=== PATIENT | female | born 2000 | race Caucasian/White ===

== ENCOUNTER 2023-11-26 05:55 | Emergency (ER) | payer BC, SELFPAY ==
[2023-11-26 06:15] VITALS: BP 133/93; PULSE 75; RESP 16; TEMP 36.4; O2SAT 97; BMI 23.4
--- NOTE | 2023-11-26 06:36 | ED.GENADULT ---
HPI - General Adult General Chief complaint: Abdominal Pain Stated complaint: abdominal pain Time Seen by Provider: 11/26/23 06:18 Source: patient Mode of arrival: ambulatory Limitations: no limitations History of Present Illness HPI narrative: [age] for old female presents the emergency department with a a 16 hour history of epigastric area discomfort. Does not radiate, achy and constant, slept poorly overnight due to this. Does not drink excessive amounts of alcohol, does not smoke. Does admit to drinking kombucha or seltzers daily. No fever, no trauma or injury. Last bowel movement was about 2 days ago and normal. No bloody stools, no constipation, no diarrhea. No right upper quadrant pain or vomiting. No fevers, chills or signs of systemic illness. No history of gallbladder disease. No prior history of abdominal surgeries. No prior history of similar symptoms. Did not try any Tylenol, ibuprofen, stomach acid medicines, etc. prior to coming to ED. Takes an oral contraceptive, no missed pills, is currently about day 7 of her pack. No gynecological changes. Past medical history benign, denies major long-term health problems. Only home medication is oral contraceptive, no prior surgeries. Nonsmoker. ROS is notable for the GI symptoms as above only, otherwise denies times 12 systems. Related Data Home Medications ?Medication ?Instructions ?Recorded ?Confirmed control 11/26/23 Previous Rx's ?Medication ?Instructions ?Recorded famotidine 40 mg tablet 40 mg PO DAILY #14 tabs 11/26/23 ondansetron 4 mg disintegrating 4 mg PO Q8H PRN nausea and 11/26/23 tablet vomiting #7 tabs Allergies Allergy/AdvReac Type Severity Reaction Status Date / Time No Known Drug Allergies Allergy Verified 11/26/23 06:18 [facility] Social History Smoking Status: Never smoker Do you use any of these nicotine containing products: None How often do you have a drink containing alcohol: never AUDIT-C Alcohol total score: 0 Non-prescribed substance use: denies use Exam Const: Vital Signs, click to edit/add: Vital Signs - 24 hr 11/26/23 06:15 Temperature 97.6 F Pulse Rate [Pulse Oximeter] 75 Respiratory Rate 16 Blood Pressure [Ri ght Upper Arm] 133/93 H Pulse Oximetry 97 Oxygen Delivery Me thod Room Air Documenting provider has reviewed patient's vital signs: yes Common normals: no apparent distress General appearance: cooperative and well kempt HENMT: Common normals: normocephalic and oropharynx normal Head and scalp: normocephalic Face and sinus: normal facial exam Mouth: oral and palatal mucosa normal Throat: posterior oropharynx normal Eye: Common normals: conjunctivae normal General eye: normal appearance of both eyes Conjunctiva: conjunctiva(e) normal Neck & C-Spine: Common normals: no lymphadenopathy General: normal visual inspection Resp: Common normals: normal respiratory effort, no use of accessory muscles and clear to auscultation bilaterally Effort & inspection: able to speak in complete sentences Auscultation: clear to auscultation bilaterally Cardio: Common normals: regular rate, regular rhythm, S1 normal heart sound, S2 normal heart sound and no murmurs Rate: regular rate Rhythm: regular rhythm Heart sounds: S1 normal and S2 normal GI: Common normals: Normal to inspection, nondistended, normoactive bowel sounds present, soft to palpation, no hepatosplenomegaly and no masses Palpation: soft and no hepatosplenomegaly Other: Mildly tender to epigastrium only. No rebound tenderness, guarding or pain in other areas. No hepatosplenomegaly, no mass : Common normals: no CVA tenderness Bladder/kidney exam: no CVA tenderness Back & Pelvis: Common normals: no CVA tenderness Extremity: Common normals: normal to inspection, normal capillary refill and no pedal edema Neuro: Speech: speech normal Motor exam: strength 5/5 throughout and no movement abnormalities noted Psych: Appearance: well kempt Activity/motor behavior: appropriate eye contact Mood and affect: euthymic mood Attention/concentration: attention grossly intact Judgement: judgment good Skin: Common normals: no rashes or lesions noted General skin exam: no rashes or lesions noted Course Course ED Course: Epigastric pain with normal vital signs and overall reassuring exam. Suspect gastritis. Question viral etiology, cannot exclude other etiologies. Lower suspicion for bleeding ulcer, obstruction, pancreatitis, gallbladder disease, appendicitis, unusual presentation of kidney stone. Recommended some basic blood work to look at LFTs, pancreatic enzymes, basic metabolic panel and inflammatory markers. Will give famotidine and GI cocktail. Discussed risks and benefits of CT scan. At this time exam is very reassuring, no fever. If blood work is reassuring, would not recommend CT due to risk of radiation. Await findings in blood work and clinical response to trial of medication. Reevaluation(s) Time of Reevaluation #1: 07:51 Reevaluation #1: Patient feeling a little better after the famotidine and GI cocktail. No vomiting. Lab findings reviewed, very reassuring. Suspect gastritis. I do not recommend CT or further workup based on how reassuring the labs are. Discussed 10 days of famotidine, avoiding carbonated beverages, most likely viral etiology. I would like for her to also have some Zofran and loperamide on hand in case her symptoms do evolve like most individuals we are seeing with the current circulating GI virus. Slowly reintroduce foods as tolerated and drink lots of fluids. Alarm symptoms are reviewed that would warrant ED presentation. She verbalizes understanding and agreement. Vital Signs Vital signs: Initial Vital Signs Temperature 97.6 F 11/26/23 06:15 Temperature Source Temporal Artery Scan 11/26/23 06:15 Pulse Rate 75 11/26/23 06:15 Respiratory Rate 16 11/26/23 06:15 Blood Pressure 133/93 H 11/26/23 06:15 Blood Pressure Mean 106 H 11/26/23 06:15 Blood Pressure Position Sitting 11/26/23 06:15 Pulse Oximetry 97 11/26/23 06:15 Oxygen Delivery Method Room Air 11/26/23 06:15 Vital Signs Temperature 97.6 F 11/26/23 06:15 Pulse Rate 75 11/26/23 06:15 Respiratory Rate 16 11/26/23 06:15 Blood Pressure 133/93 H 11/26/23 06:15 Pulse Oximetry 97 11/26/23 06:15 Oxygen Delivery Method Room Air 11/26/23 06:15 Temperature 97.6 F 11/26/23 06:15 Pulse Rate 75 11/26/23 06:15 Respiratory Rate 16 11/26/23 06:15 Blood Pressure 133/93 H 11/26/23 06:15 Pulse Oximetry 97 11/26/23 06:15 Oxygen Delivery Method Room Air 11/26/23 06:15 Medications Administered Medications: Discontinued Medications Generic Name Dose Route Start Last Admin Trade Name Freq PRN Reason Stop Dose Admin Famotidine 20 mg 11/26/23 06:33 11/26/23 06:52 Famotidine 20 Mg Tablet PO 11/26/23 06:34 20 mg ONCE ONE Administration Lidocaine/Aluminum/Magnesium/Simeth 30 ml 11/26/23 06:33 11/26/23 06:52 Gi Cocktail (Visc Lido/Antacid) 30 Ml PO 11/26/23 06:34 30 ml ONCE ONE Administration Medical Decision Making Lab Data Lab results reviewed: Yes I reviewed the patient's lab results Lab results narrative: Reassuring. Labs: Lab Results 11/26/23 11/26/23 Range/Units 06:59 07:30 WBC 6.60 (4.50-11.00) K/uL RBC 4.48 (4.00-5.20) m/uL Hgb 12.9 (12.0-16.0) gm/dL Hct 39.1 (33.0-51.0) % MCV 87 (80-100) fL MCH 29 (26-34) pg MCHC 33 (32-36) gm/dL RDW Coeff of Cielo 12.5 (11.5-15.5) % Plt Count 180 (140-440) K/uL Neut % (Auto) 79.5 H (42.0-72.0) % Lymph % (Auto) 9.2 L (20-44) % Anderson % (Auto) 9.8 (0.0-11.0) % Eos % (Auto) 1.1 (0.0-7.0) % Baso % (Auto) 0.2 (0.0-3.0) % Neut # (Auto) 5.20 (1.7-7.0) K/uL Lymph # (Auto) 0.60 L (0.90-2.90) K/uL Anderson # (Auto) 0.60 (0.00-0.90) K/UL Eos # (Auto) 0.07 (0.00-0.50) K/uL Baso # (Auto) 0.01 (0.00-0.30) K/uL Abs Immat Gran (auto) 0.01 (0.00-0.30) K/uL Imm/Tot Granulo (auto) 0.2 % Sodium 139 (135-149) mmol/L Potassium 4.0 (3.6-5.1) mmol/L Chloride 107 (96-114) mmol/L Carbon Dioxide 23 (20-32) mmol/L Anion Gap 9 (7-15) mEq/L BUN 8 (5-24) mg/dL Creatinine 0.6 (0.5-1.5) mg/dL Estimated Creat Clear 135.35 Estimated GFR 128 ml/min Glucose 105 (60-115) mg/dL Calcium 8.9 (8.4-10.6) mg/dL Total Bilirubin 0.4 (0.1-1.5) mg/dL AST 24 (12-35) U/L ALT 17 (4-35) U/L Alkaline Phosphatase 42 (40-150) U/L C-Reactive Protein 2.0 H (0.5-1.0) mg/dL Total Protein 7.7 (6.0-8.3) g/dL Albumin 4.7 (3.3-5.0) g/dL Lipase 72 (23-300) U/L Urine Color Yellow (Yellow) Urine Appearance Clear (Clear) Urine pH 6.5 (5.0-8.5) Ur Specific Stacy 1.015 (1.000-1.030) Urine Protein Negative (Negative) Urine Glucose (UA) Negative (Negative) Urine Ketones Negative (Negative) Urine Blood Negative (Negative) Urine Nitrite Negative (Negative) Urine Bilirubin Negative (Negative) Urine Urobilinogen 0.2 (0.2-1.0) Ur Leukocyte Esterase Negative (Negative) Urine HCG, Qual Negative (Negative) Discharge Plan Discharge Clinical Impression: Gastritis Instructions: Gastritis (DC) Additional Instructions: As we discussed, your blood work is reassuring. There are no signs of gallstones, gallbladder disease, infection, significant inflammation, pancreatic abnormalities or anemia. This is all great news. I suspect that your symptoms are caused by gastritis which is an inflammation of the stomach lining typically caused by a virus in people your age. Most of the time, the virus then progresses to nausea and vomiting and then often diarrhea or loose stools over the next few days. I would like for you to avoid carbonated beverages and alcohol for the next week. I would like for you to take famotidine which is a stomach acid medicine once daily for the next 10 days to allow things to heal. I would also like to give you a prescription for Zofran which is an anti nausea medication. You are not having vomiting but most people that have the stomach discomfort do progressed to vomiting within the next 12-24 hours and I would like to help prevent and or reduce your risk of dehydration or worsening if that occurs. You do not need to take the Zofran unless you start to feel very nauseated. If you developed loose stools or diarrhea, it is okay to use [id number] Imodium also known as loperamide. I would recommend that you pick some up and have this on hand. If you start running high fevers, have severe weakness, lots of bloody stools or persistent vomiting that is not responding to the Zofran, you should come back to the emergency department. Otherwise if your symptoms persist for more than 10 days, I would recommend that you make a follow-up appointment with the primary care provider to run additional tests. Activity Level: Activity as Tolerated Prescriptions: New famotidine 40 mg tablet 40 mg PO DAILY Qty: 14 1RF Rx Instructions: Take daily for the next 10 days, then as needed for stomach discomfort ondansetron 4 mg tablet,disintegrating 4 mg PO Q8H PRN (Reason: nausea and vomiting) Qty: 7 0RF No Action control Follow Up/Referrals: Generic,Amb Provider [Primary Care Provider] -
--- OUTSIDE RECORDS SUMMARY | 2023-11-26 06:51 | XMS_ITS | Clinical Summary ---
Author Organization [employer] Address [place], [place] [address] Care Team Providers Care Dental Technician Instructor Name Role Phone Pcp, No Primary Care Provider Unavailabl e Allergies No known active allergies Medications Medication Sig Dispensed Refills Start Date End Date Status norgestrel-ethinyl estradiol, 0.3-30 mg-mcg, (LO-OVRAL) 0.3-30 mg-mcg tabletIndications:Gener al counseling for prescription of oral contraceptives Take 1 Tablet by mouth once daily. 84 Tablet 3 03/20/2023 Active Active Problems Problem Noted Date Diagnosed Date Pap smear for cervical cancer screening 04/12/20 22 Overview: 04/2022 NIL. Plan: Pap/HPV due 04/2025. Immunizations Name Administration Dates Next Due COVID-19 Vaccine Spikevax (M oderna 50mcg/0.5mL) 12YO+ [id number] Formula PF 03/20/2023 COVID-19 vaccine (Pfizer-Bio NTech 30mcg/0.3mL) 12YO+ BIVALENT PF, MDV 04/24/2022 COVID-19 vaccine (Pfizer-Bio NTech 30mcg/0.3mL) PF, MDV 05/20/2021,10/04/2020,09/13/2020 Tdap 12/02/2012 Family History Medical History Relation Name Comments Alcoholism Father Alzheimer's disease Maternal Grandfather Diabetes Maternal Grandmother Cancer-breast Mother had mastectomy ; no chemo or radiation Cancer Paternal Grandfather stomach Skin cancer Paternal Grandmother Relation Name Status Comments Father Maternal Grandfather Maternal Grandmother Mother Paternal Grandfather Paternal Grandmother Social History Tobacco Use Types Packs/Day Years Used Date Smoking Tobacco: Never Smokeless Tobacco: Never Tobacco Cessation:Counseling Given: Yes Alcohol Use Standard Drinks/Week Comments Yes 0 (1 standard drink = 0.6 oz pur e alcohol) 1-2 drinks per week PHQ-2 Answer Date Recorded PHQ-2 TOTAL SCORE 0 03/20/2023 Social Connections Answer Date Recorded Frequency of Communication with Friends and Fami ly Not on file 05/03/2023 Financial Resource Strain Answer Date R ecorded Difficulty of Paying Living Expenses 3 05/02/2022 Difficulty of Paying Living Expenses Not on file 05/02/2022 Food Insecurity Answer Date Recorded Worried About Running Out of Food in the Last Ye ar 1 05/02/2022 Transportation Needs Answer Date Record ed Lack of Transportation (Medical) 1 05/02/2022 Housing Stability Answer Date Recorded Unable to Pay for Housing in the Last Year 1 05/02/2022 Sex and Gender Information Value Date Recorded Sex Assigned at Female 05/01/2022 11:20 AM [employer] Gender Identity Female 05/01/2022 11:20 AM [employer] Sexual Orientation Straight 05/01/2022 11 :20 AM [employer] Obstetrics History Last Filed Vital Signs Vital Sign Reading Time Taken Comments Blood Pressure 117/77 03/20/2023 8:30 AM [employer] Pulse 70 03/20/2023 8:30 AM [employer] Temperature - - Respiratory Rate - - Oxygen Saturation 98% 03/20/2023 8:30 AM [employer] Inhaled Oxygen Concentration - - Weight 66.9 kg (147 lb 6.4 oz) 03/20/2023 8:30 A M [employer] Height 169.5 cm (5' 6.73) 03/20/2023 8:30 AM CS T Body Mass Index 23.27 03/20/2023 8:30 AM [employer]OP[employer] Plan of Treatment Health Maintenance Due Date Last Done Comments HIV for age 15-65 08/14/2014 HPV series for age 9-26 (1 - 3-dose series) 08/14/2014 Hepatitis C screening for age 18-79 08/14/2017 Tetanus booster 12/02/2022 12/02/2012 Chlamydia for age 16-24 05/02/2023 05/02/2022 Influenza for age 9-49 01/12/2024 BMI (ht and wt on same day) for age 18+ 03/20/2024 03/20/2023, 05/02/2022 Depression screening for age 12+ 03/20/2024 03/20/2023, 05/02/2022 Pap test for age 21-65 05/02/2025 05/02/2022 Tdap Completed 12/02/2012 COVID-19 vaccine series Completed 03/20/20, 04/24/2022, 05/20/2021, Additional history exists Pneumococcal series for age 6-64 Aged Out No longer eligible based on patient's age to complete this topic Procedures Procedure Name Priority Date/Time Associated Diagnosis Comments GC CHLAMYDIA TRACH PROBE Routine 05/02/2022 8:29 AM [employer] Screen for STD (sexually transmitted disease) COO THIN PREP PAP SCREEN IMAGED Routine 05/02/2022 8:29 AM [employer] Screening for malignant neoplasm of cervix from Last 3 Months or Most Recently Relevant to Health Maintenance Results * COO THIN PREP PAP SCREEN IMAGED (05/02/2022 8:29 AM MANAGER [employer]ELOPMENT) Case Report Gynecologic Cytology Report ? Case: [id number] ? Authorizing Provider: ??Colleen Alarcon PA ?Collected: ? 05/02/2022 0829 ? Ordering Location: ? [facility] ?? Received: ?05/02/2022 0901 ? Clinic ? First Screen: ?Yary Sauceda ? Specimen: ?COO ThinPrep Vial Screening, Cervical ? 05/18/2022 7:54 AM [facility] ENTRAL LABORATORY INTERPRETATION/ RESULT NEGATIVE FOR INTRAEPITHELIAL LESION OR MALIGNANCY (NIL) (none) 05/18/2022 7:54 AM [facility]- ENTRAL LABORATORY IMEN ADEQUACY Satisfactory for evaluation Endocervical component present 05/18/2022 7:54 AM [facility] Date of LMP 04/17/22 05/18/2022 7:54 AM [facility] ENTRAL LABORATORY Last Pap Date first pap 05/18/2022 7:54 AM [facility]AL LAB[facility] Last Pap Result First Pap/Unknown 7:54 AM [facility] ENTRAL LABORATORY Abnormal Pap or Comfrey Bx in last 5 years No 05/18/2022 7:54 AM [facility] EN[facility]AL LAB[facility]ATORY Menstrual Status Regular Periods 05/18/2022 7:54 AM [facility] ENTRAL LABORATORY Comfrey Bx Done Today No 05/18/2022 7:54 AM [facility] Additional Information None given 05/18/2022 7:54 AM [facility]- ENTRAL LABORATORY Comment: Cytology is screened at [facility], Central Laboratory - [address], [place] [address] and [facility] - [address], [place] [address] and [facility] - [address] [place] [address] Interpreted at [facility] - [address], [place] [address] Automated Review Successful 05/18/2022 7:54 AM MANAGER STR[employer] DEVELOPMENT [facility]-C ENTRAL LABORATORY Comment:Specimen processed s uccessfully by automated chief guard device, ThinPrep Imaging System, [employer] Note The pap test is a screening technique, not a diagnostic procedure. It is used primarily to screen for squamous cancers and precursor lesions. Published studies have shown that it is subject to both false negative and false positive results. The pap test should not be used as the sole means to diagnose or exclude pre-malignant and malignant lesions. 05/18/2022 7:54 AM MANAGER STRATEGIC DEVELOPMENT [facility]-C ENTRAL LABORATORY Other (Cervical) Non-Blood / Unknown 05/02/2022 8:29 AM [employer]NAGER [employer]ELOPMENT 05/02/2022 9:01 AM MANAGER STR[employer] DEVELOPMENT Colleen MIRELES PATHOLOGY/CYTOLOGY [facility] [address] [place] [address], [place] * GC CHLAMYDIA TRACH PROBE (05/02/2022 8:29 AM MANAGER STRATE[employer]IC DEVELOPMENT) CHLAMYDIA PROBE Negative 1:06 AM MANAGER STRATEGIC DEVELOPMENT [facility] TRAL LABORATORY N GONORRHOEAE PROBE Negative 05/03/2022 1:06 AM MANAGER STRATEGIC DEVELOPMENT [facility] TRAL LABORATORY Other ENDOCERVICAL CYTOLOGIC MATERIAL / Unknown Non-Blood / Unknown 05/02/2022 8:29 AM MANAGER STR[employer]GIC DEVELOPMENT 05/02/2022 9:01 AM MANAGER STR[employer] DEVELOPMENT Colleen MIRELES [facility] [address] [place] [address], [place] from Last 3 Months or Most Recently Relevant to Health Maintenance Care Teams Dental Technician Instructor Relationship Specialty Start Date End Date Pcp, No . PCP - General 09/13/20
[2023-11-26] MEDS: FAMOTIDINE 20 MG TABLET PO (06:52)
[2023-11-26] MEDS: GI COCKTAIL (VISC LIDO/ANTACID) 30 ML PO (06:52)
[2023-11-26 07:04] LABS: Basophils Percent Auto 0.2 % (0.0-3.0); Eosinophils Percent Auto 1.1 % (0.0-7.0); Hematocrit 39.1 % (33.0-51.0); Hemoglobin* 12.9 gm/dL (12.0-16.0); Lymphocytes Percent Auto 9.2 % (20-44); Mean Corpuscular HGB Conc 33 gm/dL (32-36); Mean Corpuscular Hemoglobin 29 pg (26-34); Mean Corpuscular Volume 87 fL (80-100); Monocytes Percent Auto 9.8 % (0.0-11.0); Neutrophils Percent Auto 79.5 % (42.0-72.0); Platelet Count* 180 K/uL (140-440); RDW Coefficient of Variation % 12.5 % (11.5-15.5); Red Blood Count 4.48 m/uL (4.00-5.20)
[2023-11-26 07:05] LABS: Basophils Absolute Auto 0.01 K/uL (0.00-0.30); Eosinophils Absolute Auto 0.07 K/uL (0.00-0.50); Immature Granulocytes Abs Auto 0.01 K/uL (0.00-0.30); Immature Granulocytes Pct Auto 0.2 %
[2023-11-26 07:06] LABS: Slide Review Reflex No
[2023-11-26 07:16] LABS: Albumin* 4.7 g/dL (3.3-5.0); Chloride* 107 mmol/L (96-114)
[2023-11-26 07:17] LABS: Sodium* 139 mmol/L (135-149)
[2023-11-26 07:19] LABS: Bilirubin Total* 0.4 mg/dL (0.1-1.5); Creatinine* 0.6 mg/dL (0.5-1.5); Est. Creatinine Clearance* 135.35; Estimated Glomerular Filt Rate 128 ml/min
[2023-11-26 07:20] LABS: Alanine Aminotransferase* 17 U/L (4-35); Alkaline Phosphatase* 42 U/L (40-150); Anion Gap 9 mEq/L (7-15); Aspartate Amino Transferase* 24 U/L (12-35); Blood Urea Nitrogen* 8 mg/dL (5-24); Carbon Dioxide* 23 mmol/L (20-32); Glucose* 105 mg/dL (60-115); Lipase* 72 U/L (23-300); Total Protein* 7.7 g/dL (6.0-8.3)
[2023-11-26 07:21] LABS: Calcium* 8.9 mg/dL (8.4-10.6)
[2023-11-26 07:40] LABS: Appearance Urine Clear (Clear); Bilirubin Urine Negative (Negative); Blood Urine Negative (Negative); Color Urine Yellow (Yellow); Glucose Urine Negative (Negative); Ketones Urine Negative (Negative); Leukocyte Esterase Urine Negative (Negative); Nitrite Urine Negative (Negative); Protein Urine Negative (Negative); Specific Gravity Urine 1.015 (1.000-1.030); Urobilinogen Urine 0.2 (0.2-1.0); pH Urine 6.5 (5.0-8.5)
[2023-11-26 07:41] LABS: Ur HCG Qualitative* Negative (Negative)
[2023-11-26 08:15] VITALS: PULSE 79; RESP 20; O2SAT 95
== END 2023-11-26 08:10 | disposition home or self-care (01) ==
PROVIDERS: Emergency Provider Family Medicine
DX: K52.9 Noninfective gastroenteritis and colitis, unspecified (principal)
CPT/HCPCS: 36415; 80053; 81003; 81025; 83690; 85025; 86140; 99283; 99284; A9270